=== PATIENT | female | born 1940 | race American Indian/Alaskan Native ===

== ENCOUNTER 2020-07-28 13:44 | Outpatient (CLI) | payer MEDICARE ==
--- NOTE | 2020-07-28 15:55 | Mammography Report ---
DIGITAL DIAGNOSTIC MAMMOGRAM WITH CAD CONVENTIONAL, 07/28/2020 CLINICAL INFORMATION / INDICATION: Patient has a history of benign right breast biopsy in April 2020. Patient is currently due for left mammogram. INCONCLUSIVE MAMMO R92.2 TECHNIQUE: Digital left mammographic imaging was performed. This examination was interpreted with the benefit of Computer-aided Detection analysis. COMPARISON: Prior right mammograms are available dated 05/23/2020 and 04/29/2020. No prior left mammogr am is available. FINDINGS: Breast Density: There are scattered areas of fibroglandular density. No dominant mass, suspicious calcifications or architectural distortion in the left breast. IMPRESSION: No mammographic evidence of malignancy. Follow up recommendation: Back to schedule. BI-RADS Category 1: Negative. A "normal" or negative report should not discourage follow up or biopsy of a clinically significant f inding. A written summary of these findings will be mailed to the patient. The patient will be entered into a mammography reporting system which will generate a reminder letter for the patient's next appointmen t at the appropriate interval. According to the [employer], yearly mammograms are recommended starting at age 40 and continuing as long as a woman is in good health. Breast MRI is recommended for women with an apoorva roximately 20-25% or greater lifetime risk of breast cancer, including women with a strong family his tory of breast or ovarian cancer and women who have been treated for Hodgkin's disease. Signer Name: Carla Lauren MD Signed: 07/28/2020 3:48 PM Workstation Name: [email or web address]
== END 2020-07-28 13:45 | disposition home or self-care (01) ==
LOC: SPVWC 13:44
PROVIDERS: ATTEND Surgery
DX: R92.2 Inconclusive mammogram (principal)

== ENCOUNTER 2020-08-08 06:42 | Day surgery (SDC) | payer MEDICARE ==
[2020-08-03 10:30] LABS: Hematocrit 42.9 % (30.3-42.9); Hemoglobin 14.4 gm/dl (10.1-14.3); Mean Corpuscular HGB Conc 34 % (30-34); Mean Corpuscular Volume 89 fl (79-97); Platelet Count 252 K/mm3 (140-440); Red Blood Count 4.84 M/mm3 (3.65-5.03); Red Cell Distribution Width 13.7 % (13.2-15.2)
[2020-08-03 11:13] LABS: BUN/Creatinine Ratio 22; Blood Urea Nitrogen 22 mg/dL (7-17); Calcium 9.9 mg/dL (8.4-10.2); Hemolysis Index 3
[~2020-08-08 06:42] MED LIST: ceFAZolin/STERILE WATER 2 GM/20 ML SYRINGE IV NR
[2020-08-08] MEDS ORDERED: LIDOCAINE (1%) 10 MG/1 ML VIAL 20 ML MDV ONE ×2 (07:47→10:15)
[2020-08-08] MEDS ORDERED: MIDAZOLAM 2 MG/2 ML INJ IV NR (08:47)
[2020-08-08] MEDS ORDERED: LACTATED RINGERS 1,000 ML ONE (08:52)
[2020-08-08] MEDS ORDERED: propofoL 200 MG/20 ML VIAL IV ONE (08:57)
[2020-08-08] MEDS ORDERED: fentaNYL 100 MCG/2 ML INJ ONE (08:58)
[2020-08-08] MEDS ORDERED: LIDOCAINE MPF (2%) 20 MG/1 ML VIAL 5 ML ONE (08:58)
[2020-08-08] MEDS ORDERED: LACTATED RINGERS 1,000 ML IV SCH (09:00)
--- NOTE | 2020-08-08 09:09 | Anesthesia Day of Surgery ---
Anesthesia Day of Surgery - Day of Surgery Patient Examined: Yes Patient H&P Reviewed: Yes Patient is NPO: Yes
[2020-08-08] MEDS ORDERED: ONDANSETRON 4 MG/2 ML INJ IV PRN (09:10)
[2020-08-08] MEDS ORDERED: HYDROmorphone 1 MG/1 ML INJ IV PRN (09:10)
[2020-08-08] MEDS ORDERED: ACETAMINOPHEN 325 MG TAB PO ONE (09:10)
--- NOTE | 2020-08-08 09:10 | Anesthesia Consultation ---
Anesthesia Consult and Med Hx Date of service: 08/08/20 - Airway Anesthetic Teeth Evaluation: Dentures, Edentulous ROM Head & Neck: Adequate Mental/Hyoid Distance: Adequate Mallampati Class: Class II Intubation Access Assessment: Good - Pre-Operative Health Status ASA Pre-Surgery Classification: ASA2 Proposed Anesthetic Plan: General - Pulmonary Hx Smoking: No Hx Respiratory Symptoms: No (+2FS) - Cardiovascular System Hx Hypertension: Yes - Central Nervous System Hx Psychiatric Problems: No - Gastrointestinal Hx Gastroesophageal Reflux Disease: No - Endocrine Hx Renal Disease: No Hx Non-Insulin Dependent Diabetes: Yes - Hematic Hx Sickle Cell Disease: No - Other Systems Hx Alcohol Use: Yes (OCCASIONALLY) Hx Substance Use: No Hx Cancer: No Hx Obesity: No
[2020-08-08] MEDS ORDERED: CELECOXIB 200 MG CAP PO NR (10:00)
[2020-08-08] MEDS ORDERED: BUPIVACAINE/PF (0.25%) 2.5 MG/ML 30 ML VIAL INFILTRATI ONE ×3 (10:15→10:58)
--- NOTE | 2020-08-08 10:23 | Mammography Report ---
MAMMOGRAPHIC GUIDED RIGHT BREAST NEEDLE LOCALIZATION, 08/08/2020 CLINICAL INFORMATION / INDICATION: RT BREAST CANCER. COMPARISON: 05/23/2020 PROCEDURE: Risks, benefits and indications to the procedure were discussed with the patient. The patient agreed to proceed with both verbal and written consent. A timeout procedure was performed with 2 patient mirna ntifiers. The breast was prepped with betadine in the usual sterile fashion. Approximately 5 cc of Lidocaine 1% was used for local anesthesia at each wire localization site. Under direct digital mammographic guid ance, 3 localization wires were placed in satisfactory position which bracketed 3 separate surgical c lips in the anterior and medial right breast. Post-biopsy mammogram confirms satisfactory positioning of the localization wires. The wires were secured to the skin with a sterile dressing. The patient tolerated procedure without difficulty. No complications were encountered. IMPRESSION: 1. Satisfactory mammographic guided wire localization/bracketing of 3 right breast lesions as describ ed. Signer Name: Chris Adler Jr, MD Signed: 08/08/2020 10:18 AM Workstation Name: [id number]
[2020-08-08] MEDS ORDERED: SODIUM CHLORIDE 0.9% IRR 1,500 ML BOTTLE IR ONE (10:30)
[2020-08-08] MEDS ORDERED: ONDANSETRON 4 MG/2 ML INJ ONE (10:38)
[2020-08-08] MEDS ORDERED: dexAMETHasone 20 MG/5 ML VIAL ONE (10:38)
[2020-08-08] MEDS ORDERED: ePHEDrine SULFATE 50 MG/1 ML INJ ONE (10:50)
[2020-08-08] MEDS ORDERED: LIDOCAINE (1%) 10 MG/1 ML VIAL 20 ML MDV INFILTRATI ONE ×2 (10:58)
[2020-08-08] MEDS ORDERED: PHENYLEPHRINE/NS 1,000 MCG/10 ML SYRINGE (OR USE) IV ONE (11:00)
[2020-08-08] MEDS ORDERED: BACITRACIN ZINC OINT 28.4 GM TP ONE (12:14)
--- NOTE | 2020-08-08 13:00 | Short Stay Summary ---
Short Stay Documentation Date of service: 08/08/20 - History H&P: obtained from office - Allergies and Medications Current Medications: Allergies No Known Allergies Allergy (Verified 07/29/20 11:54) Home Medications Medication Instructions Recorded Confirmed Last Taken Type Losartan [Cozaar] 100 mg PO QDAY 07/29/20 07/29/20 Unknown History allopurinoL [Zyloprim] 100 mg PO QDAY 07/29/20 07/29/20 Unknown History metFORMIN [Glucophage] 500 mg PO BID 07/29/20 07/29/20 Unknown History Ibuprofen [Motrin 800 MG tab] 800 mg PO Q8HR PRN #10 tablet 08/08/20 Unknown Rx Active Medications Cefazolin Sodium (Cefazolin/Sterile Water 2 Gm/20 Ml Syringe) 2 gm IV PREOP NR Stop: 08/08/20 19:00 Celecoxib (Celecoxib 200 Mg Cap) 200 mg PO PREOP NR Stop: 08/08/20 13:00 Last Admin: 08/08/20 09:43 Dose: 200 mg Documented by: Hydromorphone HCl (Hydromorphone 1 Mg/1 Ml Inj) 0.25 mg IV Q10MIN PRN PRN Reason: Pain, Moderate (4-6) Stop: 08/08/20 23:00 Hydromorphone HCl (Hydromorphone 1 Mg/1 Ml Inj) 0.5 mg IV Q10MIN PRN PRN Reason: Pain , Severe (7-10) Stop: 08/08/20 23:00 Lactated Ringer's (Lactated Ringers) 1,000 mls @ 100 mls/hr IV DIRECT TROY Last Admin: 08/08/20 09:15 Dose: 100 mls/hr Documented by: Midazolam HCl (Midazolam 2 Mg/2 Ml Inj) 2 mg IV ONCE NR Stop: 08/08/20 16:00 Last Admin: 08/08/20 09:25 Dose: 2 mg Documented by: Ondansetron HCl (Ondansetron 4 Mg/2 Ml Inj) 4 mg IV ONCE PRN PRN Reason: Nausea And Vomiting Stop: 08/08/20 13:00 - Brief post op/procedure progress note Date of procedure: 08/08/20 Pre-op diagnosis: Right breast mass upper inner quadrant Post-op diagnosis: same Procedure: Right breast mass excisional biopsy of upper outer quadrant Anesthesia: GETA Findings: Wires and clips present Surgeon: IRVING TREJO Estimated blood loss: minimal Pathology: list Specimen disposition: to lab Condition: stable - Disposition Condition at discharge: Good Disposition: DC- TO HOME OR SELFCARE Short Stay Discharge Plan Activity: other (no heavy lifting) Diet: regular Wound: keep clean and dry (wear breast binder; may shower in 48 hours; no baths, pools or lakes) Follow up with: IRVING TREJO MD [Staff Physician] - 7 Days Prescriptions: Ibuprofen [Motrin 800 MG tab] 800 mg PO Q8HR PRN #10 tablet PRN Reason: Pain , Severe (7-10)
--- NOTE | 2020-08-08 13:15 | Operative Report ---
Operative Report Operative Report: Operative Report: August 08, 2020 Preoperative diagnosis: Right breast mass of the upper inner quadrant Postoperative diagnosis: Same Procedure: Complex right needle localization breast mass excisional biopsy of the upper inner quadrant Surgeon: Brittany Thomas MD Anesthesia: General Findings: Right wires and clips present within radiograph specimen Complications: None EBL: Minimal (less than 25 cc) Disposition: PACU in good condition Indications for operative procedure: This is a 79 year old lady with recent abnormal right screening and right diagnostic mamamgoram with biopsy performed of lesion of the upper inner quadrant with discordant pathology findings and re commendations for excisional biopsy to rule out malignancy. Patient initially underwent right breast biopsy August 2019 with benign pathology concordant findings of retroareolar upper inner quadrant. Recent mammogram and ultrasound with suspicious findings at 3:00 retroareolar and ultrasound guided needle core biopsy performed in March 2020 with benign findings but pathology discordant. Stereotactic biopsy then recommended by radiologist. Stereotactic biopsy then performed by radiologist with discordant findings as well and radiologist's recommendations for excisional biopsy given spiculated lesion to rule out malignancy. Recommendations are to proceed with right breast excisional biopsy to rule out malignancy. She wished to proceed with the above procedure. Procedure in detail: The patient was taken to radiology for wire placement for localization known area of concern. Radiologist bracketed area of 3 clips. Patient was then taken to the operating room. Gen. anesthesia was administered. Right breast and axilla were prepped and draped in the normal sterile operative fashion. The wires were identified. Timeout was performed. Ultrasound was used as well. Attention was then taken towards the right breast. A periareolar breast incision (at prior breast incision) was made around the 3:00 position with a 15 blade knife and dissection taken down to subcutaneous tissues. First began raising of the superior flap with removal of the wire from the skin with dissection take down posteriorly past the wire (scar tissue was present from patient's prior excisional biopsy in 2016) then followed by raising of the inferior flap, medial flap and lateral flap with all flaps taken down posteriorly past the wire. The breast area of concern was appropriately removed posteriorly with the aid of the Bovie cautery. The proximal and mid wire was not encountered; clip at mid wire. Specimen was marked and then sent to pathology and radiology; radiograph specimen with wire present but clip not seen. Superior breast flap was dissected posterior to the nipple with adequate tissue posterior to the nipple for vascularity. Attention was then taken towards the most recent biopsied clips of the upper inner quadrant. Through the same periareolar incision, first began raising of the superior flap with removal of the wires from the skin with dissection take down posteriorly past the wires then followed by raising of the inferior flap, medial flap and lateral flap with all flaps taken down posteriorly past the wire. The breast area of concern was appropriately removed posteriorly with the aid of the Bovie cautery. Specimen was marked and then sent to pathology and radiology; radiograph specimen with wire and clipsx2 present. Breast cavity was irrigated and hemostasis was obtained. Breast cavity was then anesthezied with 1% lidocaine mixed with quarter percent marcaine. The posterior deep breast tissues were approximated and closed using interrupted 3-0 Vicryl. The subcutaneous tissues were approximated and closed using interrupted 3-0 Vicryl followed by closing of the skin with a running 4-0 Monocryl and skin affix. The patient tolerated surgery very well and she was awaken from anesthesia without any complication and transported to PACU in good condition.
[2020-08-08] MEDS: HYDROmorphone 1 MG/1 ML INJ IV PRN ×4 (13:23→13:53)
[2020-08-08] MEDS ORDERED: HYDROcodone/ACETAMINOPHEN 5-325 MG TAB PO SCH (15:00)
--- NOTE | 2020-08-08 16:13 | Post Anesthesia Evaluation ---
- Post Anesthesia Evaluation Patient Participated: Yes Airway Patent: Yes Stable Respiratory Function: Yes Nausea/Vomiting: No Temp > 96.8F: Yes Pain Manageable: Yes Adequeate Hydration: Yes Anesthesia Complications: No Block Receding Appropriately: Not Applicable Patient on Ventilator: No
--- NOTE | 2020-08-08 16:14 | Mammography Report ---
RIGHT BREAST SPECIMEN RADIOGRAPH, 08/08/2020 INDICATION: Right breast cancer COMPARISON: Needle localization performed earlier today FINDINGS: The previously localized target lesions in the right breast are present in its entirety in the submi tted specimen. 2 localization wire are present. IMPRESSION: 1. Radiographic evidence of satisfactory excision of the right breast target lesions. These findings were discussed with Dr. Thomas at the time of specimen radiograph acquisition. Signer Name: Chris Adler Jr, MD Signed: 08/08/2020 4:10 PM Workstation Name: [id number]
[2020-08-08 16:18] VITALS: BP 152/87
== END 2020-08-08 15:25 | disposition home or self-care (01) ==
LOC: OR 06:42
PROVIDERS: ATTEND Surgery
DX: N63.12 Unspecified lump in the right breast, upper inner quadrant (principal); Z20.822 Contact with and (suspected) exposure to COVID-19; I10 Essential (primary) hypertension; M19.90 Unspecified osteoarthritis, unspecified site; E11.9 Type 2 diabetes mellitus without complications; Z79.899 Other long term (current) drug therapy; Z79.84 Long term (current) use of oral hypoglycemic drugs; Z98.41 Cataract extraction status, right eye; Z98.42 Cataract extraction status, left eye; Z90.710 Acquired absence of both cervix and uterus; Z72.89 Other problems related to lifestyle; Z98.890 Other specified postprocedural states
CPT/HCPCS: 19125; 19281; 36415; 76098; 80048; 82962; 85027; 88307; A4648; J0690; J1100; J1170; J2250; J2370; J2405; J2704; J3010; J7120; U0003

== ENCOUNTER 2021-04-25 09:08 | Outpatient (CLI) | payer MEDICARE ==
--- NOTE | 2021-04-25 15:46 | Mammography Report ---
DIGITAL SCREENING MAMMOGRAM WITH CAD, 04/25/2021 CLINICAL INFORMATION / INDICATION: Routine screening mammography. SCREENING MAMMO TECHNIQUE: Digital bilateral 2D mammography was obtained in the craniocaudal and mediolateral obliqu e projections. This examination was interpreted with the benefit of Computer-Aided Detection analysis . COMPARISON: 06/21/2017 through 08/08/2020. FINDINGS: Breast Density: There are scattered areas of fibroglandular density. No dominant mass, suspicious calcifications, or architectural distortion in the left breast. There are new postsurgical changes in the right medial breast with scarring now present. No other lynsey nge. IMPRESSION: No mammographic evidence of malignancy. Follow up recommendation: Routine yearly BI-RADS Category 2: BENIGN. A "normal" or negative report should not discourage follow up or biopsy of a clinically significant f inding. A written summary of these findings will be mailed to the patient. The patient will be entered into a mammography reporting system which will generate a reminder letter for the patient's next appointmen t at the appropriate interval. The [employer] recommends yearly mammograms starting at age 40 and continuing as l dmitriy as a woman is in good health. Breast MRI is recommended for women with an approximate 20-25% or greater lifetime risk of breast cancer, including women with a strong family history of breast or ova hayes cancer or who have been treated for Hodgkin's disease. Signer Name: Arnold Snowden MD Signed: 04/25/2021 3:42 PM Workstation Name: [id number]
== END 2021-04-25 09:09 | disposition home or self-care (01) ==
LOC: SPVWC 09:08
PROVIDERS: ATTEND Surgery
DX: Z12.31 Encounter for screening mammogram for malignant neoplasm of breast (principal)
CPT/HCPCS: 77067